=== PATIENT | male | born 1950 | race Caucasian/White ===

== ENCOUNTER → 2021-02-18 | Outpatient (CLI) | payer OTHER, BC ==
[~2021-02-18] VITALS: Ht 170.2 cm; Wt 72.6 kg
[~2021-02-18] MED LIST: HUMALOG100 UNIT/1 SUBQ; LEVEMIR100 UNIT/1 IM; MELOXICAM15 MG PO; SIMVASTATIN PO
[2021-02-18 10:00] VITALS: BP 140/67
--- NOTE | 2021-02-18 10:30 | NUR ---
Pain Clinic Assessment: 1. History of Osteoarthritis: Left Lower Extremity History of Rheumatoid Arthritis: Not Applicable 2. Height: 5 ft. 7 in. 170.2 cm. Weight: 160.0 lb. oz. 72.576 kg. Patient's BMI: 25.1 3. Vital Signs: BP: 140/67 Pulse: 60 Resp: 14 Temp: 02 Sat: 98 ECG Mon: 4. Pain Intensity: 3 5. Fall Risk: Dizziness: N Needs help standing or walking: N Fallen in the last 3 months: N Fall risk comments: 6. Patient on Blood Thinner: None 7. History of Hypertension: N 8. Opioid Therapy greater than 6 weeks: N Opiate Contract Signed: 9. Risk Assessment Tool Provided: LOW 10. Functional Assessment Tool: 11. Recreational Drug Use: Never Drug Type: Tobacco Use: Never Smoker Tobacco Type: Amount or Packs/day: How Many Years: Alcohol Use: Unknown Frequency: Daily Quant: 1-2
== END ==
LOC: PAIN 06:59
PROVIDERS: ATTEND Anesthesiology Pain Medicine
DX: M50.323 Other cervical disc degeneration at C6-C7 level (principal); G89.29 Other chronic pain; E78.5 Hyperlipidemia, unspecified; E11.9 Type 2 diabetes mellitus without complications; M72.0 Palmar fascial fibromatosis [Dupuytren]; M16.11 Unilateral primary osteoarthritis, right hip; R97.20 Elevated prostate specific antigen [PSA]; Z79.4 Long term (current) use of insulin; Z91.048 Other nonmedicinal substance allergy status